=== PATIENT | male | born 1980 | race Caucasian/White ===

== ENCOUNTER → 2023-12-20 07:26 | Outpatient (CLI) | payer OTHER, SELFPAY | LOC: LAB 07:28 | PROVIDERS: PCP Family Medicine; Referring Provider Dermatology; Visit Provider Dermatology | DX: R21 Rash and other nonspecific skin eruption (principal) | CPT/HCPCS: 84120 ==

== ENCOUNTER → 2025-06-05 10:15 | Outpatient (CLI) | payer OTHER, SELFPAY ==
--- NOTE | 2025-06-05 10:17 | DI.RAD.S_ITS ---
PROCEDURE: XR FOOT 2V WB RIGHT INDICATIONS: RT FOOT PAIN TECHNIQUE: Two weight-bearing views acquired of the foot. COMPARISON: None. FINDINGS: Bones: Mild hallux valgus angulation of the 1st MTP joint with medial bunion formation.. No fractures or dislocations. No suspicious bony lesions. Soft tissues: No tibiotalar joint effusion. No suspicious soft tissue calcifications. IMPRESSION: No acute osseous abnormalities. Mild hallux valgus angulation of the 1st MTP joint with medial bunion formation. Dictated by: Jerardo Kang M.D. on 06/05/2025 at 13:08 Approved by: Jerardo Kang M.D. on 06/05/2025 at 13:09
== END ==
PROVIDERS: PCP Family Medicine; Referring Provider Family Medicine; Visit Provider Family Medicine
DX: M20.11 Hallux valgus (acquired), right foot (principal); M21.611 Bunion of right foot; M79.671 Pain in right foot
CPT/HCPCS: 73620